=== PATIENT | male | born 1970 | race Caucasian/White ===

== ENCOUNTER 2021-01-07 12:51 | Observation (INO) | payer OTHER ==
[2021-01-07] MEDS ORDERED: SODIUM CHLORIDE 0.9% 1,000 ML IV STA ×2 (13:32→14:42)
[2021-01-07] MEDS ORDERED: METOCLOPRAMIDE 5 MG/ML 2 ML VIAL IVP STA (13:32)
[2021-01-07] MEDS ORDERED: MECLIZINE 12.5 MG TAB PO STA (13:33)
--- NOTE | 2021-01-07 13:35 | ED ---
General Adult HPI - General Source: patient, family Mode of arrival: ambulatory Limitations: no limitations <Brien Evans Vicky - Last Filed: 01/07/21 14:55> <Mary Taylor Maurice - Last Filed: 01/09/21 14:48> - General Chief complaint: Dizziness Stated complaint: possible ear infection Time Seen by Provider: 01/07/21 13:14 - History of Present Illness Initial comments: Dictation was produced using [employer] dictation software. please excuse any grammatical, word or spelling errors. Chief Complaint: 50-year-old male with no past medical history presents with vertigo History of Present Illness: Patient is a 42-year-old male he has no significant past medical history. He states that yesterday he began spritzing symptoms of vertigo. He states it feels like the room is spinning. States that rest his symptoms go away. It feels worse when he goes from lying down to sitting up. Patient has history of vertigo that he expense will kayaking once. Was never this bad. Patient denies any headache. No numbness or paresthesias to the arms or legs. The ROS documented in this emergency department record has been reviewed and confirmed by me. Those systems with pertinent positive or negative responses have been documented in the HPI. All other systems are other negative and/or noncontributory. PHYSICAL EXAM: General Impression: Alert and oriented x3, not in acute distress HEENT: Normocephalic atraumatic, extra-ocular movements intact, pupils equal and reactive to light bilaterally, mucous membranes moist. Cardiovascular: Heart regular rate and rhythm Chest: Able to complete full sentences, no retractions, no tachypnea Abdomen: abdomen soft, non-tender, non-distended, no organomegaly Musculoskeletal: Pulses present and equal in all extremities, no peripheral edema Motor: no focal deficits noted Neurological: CN II-XII grossly intact, no focal motor or sensory deficits noted, inducible nystagmus with gaze to the left, fast phase to the left, nondiaphoretic drinking Skin: Intact with no visualized rashes Psych: Normal affect and mood ED course:. 50-year-old male presents to the emergency department for benign positional vertigo. Vital Signs upon arrival are within acceptable limits. Laboratory evaluation obtained. CBC, coag panel, metabolic panel obtained. Labs unremarkable except for glucose of 236. This is addressed patient. He denies any history of diabetes. Says he had some cereal this morning. He is told that he could potentially be showing signs of diabetes. Patient reevaluated after administration of Antivert, IV fluids and Reglan. Trial ambulation was attempted. Patient still felt very lightheaded uneasy in his feet. States the symptoms began as he tried to walk. States that prior to attempting to ambulate his symptoms were essentially unnoticeable. Disposition options were discussed. States he doesn't have insurance and does not want to be admitted if he can be avoided. Patient agreeable for trial with diazepam. Pending urine. Patient is signed out to oncoming physician, Dr. Taylor. She is instructed to follow-up with patient and see if his symptoms resolve and to determine patient's final disposition EKG interpretation: Ventricular rate 90, normal sinus rhythm,. 122, QRS 82, QTc 437. No WI prolongation, no QTC prolongation, no ST or T-wave changes noted. Overall, this EKG is unremarkable (Brien Evans) - Related Data Home Medications Medication Instructions Recorded Confirmed Loratadine [Claritin] 10 mg PO DAILY 01/07/21 01/07/21 Allergies Allergy/AdvReac Type Severity Reaction Status Date / Time pseudoephedrine AdvReac JITTERY Verified 01/07/21 13:45 Review of Systems ROS Other: All systems not noted in ROS Statement are negative. <Brien Evans - Last Filed: 01/07/21 14:55> ROS Other: All systems not noted in ROS Statement are negative. <Mary Taylor - Last Filed: 01/09/21 14:48> ROS Statement: Those systems with pertinent positive or pertinent negative responses have been documented in the HPI. Past Medical History Past Medical History: No Reported History History of Any Multi-Drug Resistant Organisms: None Reported Past Surgical History: Tonsillectomy Past Psychological History: Depression Smoking Status: Never smoker Past Alcohol Use History: None Reported Past Drug Use History: None Reported <Brien Evans - Last Filed: 01/07/21 14:55> General Exam Limitations: no limitations <Brien Evans - Last Filed: 01/07/21 14:55> Course Vital Signs 01/07/21 01/07/21 01/07/21 13:00 14:57 15:41 Temperature 97.7 F Pulse Rate 94 99 98 Respiratory 18 18 18 Rate Blood Pressure 132/91 135/91 127/84 O2 Sat by Pulse 99 98 98 Oximetry 01/07/21 01/07/21 17:45 18:43 Temperature Pulse Rate 102 H 98 Respiratory 18 18 Rate Blood Pressure 132/87 111/81 O2 Sat by Pulse 98 98 Oximetry Medical Decision Making - Lab Data Result diagrams: 01/07/21 13:33 01/07/21 13:33 <Brien Evans - Last Filed: 01/07/21 14:55> - Lab Data Result diagrams: 01/08/21 05:44 01/08/21 05:44 <Mary Taylor - Last Filed: 01/09/21 14:48> - Medical Decision Making I reviewed the patient's history. Patient has been given multiple antiemetics for his vomiting as well as Antivert and Valium for his vertigo symptoms. He is reevaluated by myself. I did get the patient up and ambulate him. He does have a few episodes where he is dizzy and falling to the right side. He becomes vertiginous. He is placed back in his room and begins vomiting again. I then gave the patient Benadryl and Compazine. Due to his persistent symptoms I recommended a CT of his brain as well as CT angiography. This is performed, reviewed and negative. Due to patient's persistent symptoms I recommend admission with neurology consultation. Patient did agree to. Spoke with Dr. Ordonez who agreed to admit the patient. He is currently awaiting a bed on the floor (Mary Taylor) - Lab Data Lab Results 01/07/21 01/07/21 01/07/21 Range/Units 13:33 13:33 13:33 WBC 8.9 (3.8-10.6) k/uL RBC 5.37 (4.30-5.90) m/uL Hgb 16.1 (13.0-17.5) gm/dL Hct 47.6 (39.0-53.0) % MCV 88.7 (80.0-100.0) fL MCH 30.0 (25.0-35.0) pg MCHC 33.8 (31.0-37.0) g/dL RDW 12.0 (11.5-15.5) % Plt Count 259 (150-450) k/uL MPV 7.9 Neutrophils % 80 % Lymphocytes % 14 % Monocytes % 4 % Eosinophils % 1 % Basophils % 0 % Neutrophils # 7.1 (1.3-7.7) k/uL Lymphocytes # 1.2 (1.0-4.8) k/uL Monocytes # 0.4 (0-1.0) k/uL Eosinophils # 0.1 (0-0.7) k/uL Basophils # 0.0 (0-0.2) k/uL PT 10.5 (9.0-12.0) sec INR 1.0 (<1.2) APTT 22.4 (22.0-30.0) sec Sodium 139 (137-145) mmol/L Potassium 4.4 (3.5-5.1) mmol/L Chloride 102 (98-107) mmol/L Carbon Dioxide 24 (22-30) mmol/L Anion Gap 13 mmol/L BUN 15 (9-20) mg/dL Creatinine 0.95 (0.66-1.25) mg/dL Est GFR (CKD-EPI)AfAm >90 (>60 ml/min/1.73 sqM) Est GFR (CKD-EPI)NonAf >90 (>60 ml/min/1.73 sqM) Glucose 236 H (74-99) mg/dL POC Glucose (mg/dL) (75-99) mg/dL POC Glu Slubber Machine Operator ID [address] Glu mg/dL Hemoglobin A1c (4.0-6.0) % Calcium 10.2 (8.4-10.2) mg/dL Urine Color Urine Appearance (Clear) Urine pH (5.0-8.0) Ur Specific [place] (1.001-1.035) Urine Protein (Negative) Urine Glucose (UA) (Negative) Urine Ketones (Negative) Urine Blood (Negative) Urine Nitrite (Negative) Urine Bilirubin (Negative) Urine Urobilinogen (<2.0) mg/dL Ur Leukocyte Esterase (Negative) 01/07/21 01/07/21 01/07/21 Range/Units 14:58 16:42 17:14 WBC (3.8-10.6) k/uL RBC (4.30-5.90) m/uL Hgb (13.0-17.5) gm/dL Hct (39.0-53.0) % MCV (80.0-100.0) fL MCH (25.0-35.0) pg MCHC (31.0-37.0) g/dL RDW (11.5-15.5) % Plt Count (150-450) k/uL MPV Neutrophils % % Lymphocytes % % Monocytes % % Eosinophils % % Basophils % % Neutrophils # (1.3-7.7) k/uL Lymphocytes # (1.0-4.8) k/uL Monocytes # (0-1.0) k/uL Eosinophils # (0-0.7) k/uL Basophils # (0-0.2) k/uL PT (9.0-12.0) sec INR (<1.2) APTT (22.0-30.0) sec Sodium (137-145) mmol/L Potassium (3.5-5.1) mmol/L Chloride (98-107) mmol/L Carbon Dioxide (22-30) mmol/L Anion Gap mmol/L BUN (9-20) mg/dL Creatinine (0.66-1.25) mg/dL Est GFR (CKD-EPI)AfAm (>60 ml/min/1.73 sqM) Est GFR (CKD-EPI)NonAf (>60 ml/min/1.73 sqM) Glucose (74-99) mg/dL POC Glucose (mg/dL) 162 H (75-99) mg/dL POC Glu Slubber Machine Operator ID [address] Glu mg/dL 160 Hemoglobin A1c 7.2 H (4.0-6.0) % Calcium (8.4-10.2) mg/dL Urine Color Light Yellow Urine Appearance Clear (Clear) Urine pH 7.5 (5.0-8.0) Ur Specific [place] 1.036 H (1.001-1.035) Urine Protein Negative (Negative) Urine Glucose (UA) 4+ H (Negative) Urine Ketones 1+ H (Negative) Urine Blood Negative (Negative) Urine Nitrite Negative (Negative) Urine Bilirubin Negative (Negative) Urine Urobilinogen <2.0 (<2.0) mg/dL Ur Leukocyte Esterase Negative (Negative) Disposition Is patient prescribed a controlled substance at d/c from ED?: No <Brien Evans - Last Filed: 01/07/21 14:55> Decision to Admit Reason: Admit from EC Decision Date: 01/07/21 Decision Time: 17:49 <Mary Taylor - Last Filed: 01/09/21 14:48> Clinical Impression: Vertigo, Hyperglycemia Disposition: ADMITTED IP TO THIS HOSP Condition: Stable
[2021-01-07 13:48] LABS: Basophils % (A) 0 %; Eosinophils # (A) 0.1 k/uL (0-0.7); Eosinophils % (A) 1 %; HCT 47.6 % (39.0-53.0); HGB 16.1 gm/dL (13.0-17.5); Lymphocytes # (A) 1.2 k/uL (1.0-4.8); Lymphocytes % (A) 14 %; MCHC 33.8 g/dL (31.0-37.0); MCV 88.7 fL (80.0-100.0); Mean Platelet Volume 7.9; Monocytes # (A) 0.4 k/uL (0-1.0); Monocytes % (A) 4 %; Neutrophils # (A) 7.1 k/uL (1.3-7.7); Neutrophils % (A) 80 %; Platelet Count 259 k/uL (150-450); RBC 5.37 m/uL (4.30-5.90); WBC 8.9 k/uL (3.8-10.6)
[2021-01-07 14:18] LABS: African American GFR (CKD) >90 (>60 ml/min/1.73 sqM); Anion Gap 13 mmol/L; Blood Urea Nitrogen 15 mg/dL (9-20); Calcium 10.2 mg/dL (8.4-10.2); Carbon Dioxide 24 mmol/L (22-30); Chloride 102 mmol/L (98-107); Glucose 236 mg/dL (74-99); Non-African American GFR(CKD) >90 (>60 ml/min/1.73 sqM); Potassium 4.4 mmol/L (3.5-5.1); Sodium 139 mmol/L (137-145)
[2021-01-07 14:31] LABS: Partial Thromboplastin Time 22.4 sec (22.0-30.0); Prothrombin Time 10.5 sec (9.0-12.0)
[2021-01-07] MEDS ORDERED: DIAZEPAM 5 MG/ML 2 ML INJ IVP STA (14:43)
[2021-01-07] MEDS ORDERED: ONDANSETRON 4 MG/2 ML VIAL IVP STA (14:48)
[2021-01-07] MEDS ORDERED: DEXAMETHASONE SOD PHOSPHATE 10 MG/ML 1 ML VIAL IV STA (16:13)
[2021-01-07 16:43] LABS: Glucose,Whole Blood 162 mg/dL (75-99)
--- NOTE | 2021-01-07 17:08 | CT ---
EXAMINATION TYPE: CT brain wo con DATE OF EXAM: 01/07/2021 COMPARISON: None HISTORY: Vertigo. TECHNIQUE: CT scan of the head performed without contrast CT DLP: 1101.8 mGycm Automated exposure control for dose reduction was used. FINDINGS: No acute intracranial hemorrhage, midline shift or mass effect. [place]-white matter differentiation is preserved. CSF spaces and ventricular system are normal in appearance. No acute orbital, osseous or soft tissue abnormalities seen. Mucosal thickening is seen in the right maxillary sinus and ethmoid sinus. No mastoid air cell effusi on seen. IMPRESSION: 1. NO ACUTE INTRACRANIAL ABNORMALITY. 2. MUCOSAL SINUS DISEASE.
[2021-01-07] MEDS ORDERED: diphenhydrAMINE 50 MG/ML 1 ML VIAL IVP STA (17:11)
[2021-01-07] MEDS ORDERED: PROCHLORPERAZINE INJ 10 MG/2 ML VIAL IVP STA (17:12)
[2021-01-07 17:21] LABS: Appearance,Urine Clear (Clear); Bilirubin,Urine Negative (Negative); Blood,Urine Negative (Negative); Color,Urine Light Yellow; Glucose,Urine (UA) 4+ (Negative); Ketones,Urine 1+ (Negative); Leukocyte Esterase,Urine Negative (Negative); Nitrite,Urine Negative (Negative); PH, Urine 7.5 (5.0-8.0); Protein,Urine Negative (Negative); Specific Gravity,Urine 1.036 (1.001-1.035); Urobilinogen,Urine <2.0 mg/dL (<2.0)
--- NOTE | 2021-01-07 17:32 | CT ---
EXAMINATION TYPE: CT angio head neck DATE OF EXAM: 01/07/2021 HISTORY: Vertigo. COMPARISON: None CT DLP: 459.6 mGycm. Automated Exposure Control for Dose Reduction was Utilized. TECHNIQUE: CTA scan of the neck is performed with IV Contrast, patient injected with 65 mL of Isovue 370, axial images are obtained, coronal and sagittal reformatted images are reviewed. 3D reconstruct ed images are created on an independent workstation and reviewed. FINDINGS: Carotid/Vascular Structures: The aortic arch is normal in appearance. The common carotid arteries and vertebral arteries are patent. Internal carotid arteries and external carotid arteries are patent. N o occlusion or filling defects are seen in the [place]. Other: No acute intracranial hemorrhage, midline shift or mass effect. No enlarged cervical lymph nodes seen. The thyroid gland is normal in appearance. Lung apices are clear. Included airways are patent. The parapharyngeal fat is maintained. There are prominent lymph nodes in the parapharyngeal regions. Mild degenerative changes are seen in the cervical spine and upper thoracic spine. No significant soft tissue abnormality. IMPRESSION: Patent arterial structures from the aortic arch to the [place] with no significant stenosis or occlusion. NASCET criteria was used in interpretation of this exam?
[2021-01-07] MEDS ORDERED: ONDANSETRON 4 MG/2 ML VIAL IVP PRN (17:49)
[2021-01-07] MEDS ORDERED: NALOXONE 0.4 MG/ML 1 ML VIAL IV PRN (17:49)
[2021-01-07] MEDS ORDERED: PROMETHAZINE 25 MG TAB PO PRN (17:49)
[2021-01-07] MEDS: SODIUM CHLORIDE 0.9% 1,000 ML IV SCH (18:39)
[2021-01-08 10:09] LABS: Basophils # (A) 0.01 X 10*3/uL (0.00-0.10); Basophils % (A) 0.1 %; Eosinophils # (A) 0 X 10*3/uL (0.04-0.35); Eosinophils % (A) 0 %; HCT 41.3 % (39.6-50.0); HGB 13.5 g/dL (13.0-17.0); Lymphocytes # (A) 1.01 X 10*3/uL (0.90-5.00); Lymphocytes % (A) 9.1 %; MCHC 32.7 g/dL (32.0-37.0); MCV 88.6 fL (80.0-97.0); Mean Platelet Volume 10.7 fL (9.5-12.2); Monocytes # (A) 0.26 X 10*3/uL (0.20-1.00); Monocytes % (A) 2.3 %; Neutrophils # (A) 9.74 X 10*3/uL (1.80-7.70); Platelet Count 245 X 10*3/uL (140-440); RBC 4.66 X 10*6/uL (4.40-5.60); RDW 11.9 % (11.5-14.5); WBC 11.08 X 10*3/uL (4.50-10.00)
[2021-01-08 10:34] LABS: African American GFR (CKD) 102.7 (60.0-200.0); Anion Gap 12.3 mmol/L (4.00-12.00); BUN/Creat Ratio 13.9 Ratio (12.00-20.00); Blood Urea Nitrogen 13.9 mg/dL (9.0-27.0); Calcium 9.4 mg/dL (8.7-10.3); Carbon Dioxide 23.7 mmol/L (21.6-31.8); Non-African American GFR(CKD) 88.6 (60.0-200.0); Potassium 4.1 mmol/L (3.5-5.5)
--- NOTE | 2021-01-08 11:24 | P.CNNES ---
History of Present Illness Consult date: 01/08/21 Requesting physician: Mary Taylor Reason for Consult: Intractable vertigo History of Present Illness: Patient is a 50-year-old male with no significant past medical history, came to the hospital yesterday at 12:51 PM for evaluation of vertigo. Patient states that he woke up on Wednesday morning, 2 days ago and when he turned on the light, he lost balance, but did not fall. He felt his ears were in a sea shell, and w as feeling whooshing sounds. 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 He drove home and threw up. Since then he has been feeling wobbly when he walks. When he moves, feels sick to stomach. When he is laying down, he feels fine. When he gets up to go to the bathroom, feels sick. He never had any history of vertigo before. He denies any upper respiratory infection although does have some sinus congestion. Patient is noticing some sweating, chills off and on but no fever. No cough, shortness of breath or chest pain. Denies any recent or remote head or neck injury. Patient's vitals on arrival blood pressure 132/91, pulse of 94, temperature 97.7. CT head showed no acute intracranial process. Mucosal sinus disease. On my review, there is some opacification of the right ethmoid air sinuses. Mild mucosal thickening of the maxillary and sphenoid sinus. External auditory canals are clear. CTA of head and neck showed patent arterial structures from the aortic arch to the [place] of [place] with no significant stenosis or o cclusion. Blood test shows WBC 11.08, hemoglobin 13.5 and platelets 245. Chem- 7 is normal. Hemoglobin A1c 7.2, UA with 4+ glucose, 1+ ketones. Cronauer virus PCR negative. Patient only takes loratadine. Denies any history of diabetes. Review of Systems As above in detail. All other review of systems unremarkable. Past Medical History Past Medical History: No Reported History History of Any Multi-Drug Resistant Organisms: None Reported Past Surgical History: Tonsillectomy Past Psychological History: Depression Smoking Status: Never smoker Past Alcohol Use History: None Reported Past Drug Use History: None Reported Medications and Allergies Home Medications Medication Instructions Recorded Confirmed Type Loratadine [Claritin] 10 mg PO DAILY 01/07/21 01/07/21 History Allergies Allergy/AdvReac Type Severity Reaction Status Date / Time pseudoephedrine AdvReac JITTERY Verified 01/07/21 13:45 Physical Examination - Vital Signs Vital Signs: Vital Signs Temp Pulse Pulse Resp BP BP Pulse Ox 01/08/21 07:00 98 F 101 H 18 100/62 96 01/08/21 02:00 16 01/08/21 01:38 98.0 F 87 16 107/68 96 01/07/21 20:00 87 16 01/07/21 19:26 98.1 F 115 H 16 123/78 97 01/07/21 18:43 98 18 111/81 98 01/07/21 17:45 102 H 18 132/87 98 01/07/21 15:41 98 18 127/84 98 01/07/21 14:57 99 18 135/91 98 01/07/21 13:00 97.7 F 94 18 132/91 99 Intake and Output 01/07/21 01/08/21 01/08/21 22:59 06:59 14:59 Intake Total 240 Balance 240 Intake: Oral 240 Other: Voiding Method Toilet Toilet # Voids 2 2 0 Weight 71.668 kg Patient is a middle aged male, in no acute distress. Patient is alert awake oriented to time place and person. Speech and language functions are normal. Attention, concentration and fund of knowledge is silvestre quate. No aphasia or dysarthria. On cranial examination, pupils are round and reacting to light, visual lowery are full on confrontation, extraocular muscles are intact with mild lateral nystagmus noted on the left gaze. Face is symmetric, tongue protrudes to the midline. Palatal elevation and sensation normal, hearing and shoulder shrug normal, facial sensation normal. Shoulder shrug normal. On muscle strength testing, there is no pronator drift and the strength is normal in arms and legs distally and proximally. Deep tendon reflexes are 2+ in the upper limbs, 3+ at the knees, 2+ ankles and plantars downgoing bilaterally. No clonus. Sensory to touch is equal with no neglect. Cerebellar function showed no ataxia for [id number], or [id number] testing. No dysdiadochokinesia. Tone and bulk of muscles normal. Gait normal. On general examination, there is no carotid bruit or murmur, S1-S2 audible. Abdomen is soft nontender. Chest is clear. Peripheral pulses are present. No edema. Results - Laboratory Findings CBC and BMP: 01/08/21 05:44 01/08/21 05:44 Abnormal Lab Findings: Abnormal Labs 01/07/21 01/07/21 01/07/21 13:33 14:58 16:42 WBC Immature Gran # Neutrophils # Eosinophils # Anion Gap Glucose 236 H POC Glucose (mg/dL) 162 H Hemoglobin A1c 7.2 H Ur Specific [place] Urine Glucose (UA) Urine Ketones 01/07/21 01/08/21 01/08/21 17:14 05:44 05:44 WBC 11.08 H Immature Gran # 0.06 H Neutrophils # 9.74 H Eosinophils # 0 L Anion Gap 12.30 H Glucose 202 H POC Glucose (mg/dL) Hemoglobin A1c Ur Specific [place] 1.036 H Urine Glucose (UA) 4+ H Urine Ketones 1+ H Assessment and Plan Assessment: * Vertigo, probably due to viral labyrinthitis. Patient does have some sinus congestion, and computed tomography scan of the head also showed paranasal sinus congestion. * New onset diabetes. Hemoglobin A1c 7.2. Plan: * Consider Medrol Dosepak. * Claritin 10 mg daily. * Meclizine as needed for dizziness. * Treatment of diabetes as per IM. * We will check B12, folate and TSH. * Thank you for the consult. Addendum: The patient's nurse called me by perfect serve at 2:20 PM that patient is crying complaining of bad headache and also vomited. Patient was given Zofran. Patient at present complaining of headache involving the occipital region and the top of the head. He does drink about 4-5 cups of coffee per day, but now he has not been drinking coffee enough or not absorbing because of vomiting. He may be having caffeine withdrawal headache. Patient will be given Fioricet.
[2021-01-08] MEDS: MECLIZINE 12.5 MG TAB PO SCH ×3 (12:06→19:58)
[2021-01-08] MEDS ORDERED: LORazepam 2 MG/ML INJ IV STA (14:36)
[2021-01-08] MEDS ORDERED: BUTALB/APAP/CAFF 50-325-40MG TAB PO PRN (16:29)
[2021-01-08] MEDS: SODIUM CHLORIDE 0.9% 1,000 ML IV SCH ×2 (17:23→19:59)
--- NOTE | 2021-01-08 20:39 | P.HPIM ---
History of Present Illness H&P Date: 01/08/21 Chief Complaint: Of balance This is a pleasant 50-year-old patient who does not have a family doctor. Relevant good health except for chronic seasonal ALLERGIES, insomnia and some GERD. Yesterday patient started off after a shower as of the work seashells in the right ear. Been off of that showed Ikelizabeth became a bit wobbly. 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 Coming home he felt more off balance. Also nausea. No change in his speech. He noted that the symptoms are worse on head movement. Better with sitting still. Denies any fever and chills. Review of systems: GEN.: None EYES: None HEENT: As above NECK: None RESPIRATORY: None CARDIOVASCULAR: None GASTROINTESTINAL: Occasional GERD GENITOURINARY: None MUSCULOSKELETAL: None LYMPHATICS: None HEMATOLOGICAL: None PSYCHIATRY: None NEUROLOGICAL: As above Past medical history to include: Seasonal ALLERGIES Social history to include: Lives with his mother. 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 Does not smoke or drink alcohol. No recreational drugs. Family history: Reviewed, noncontributory to presentation Physical examination: VITAL SIGNS: 97.7, 94, 18, 132/91, 99% room air GENERAL: BMI 28, sitting up in bed, awake. EYES: Pupils equal. Conjunctiva candido, questionable horizontal nystagmus l. HEENT: External appearance of nose and ears normal, oral cavity grossly normal. NECK: JVD not raised; masses not palpable. HEART: First and second heart sounds are normal; no edema. LUNGS: Respiratory rate normal; clear to auscultation. ABDOMEN: Soft, nontender, liver spleen not palpable, no masses palpable. PSYCH: Alert and oriented x3; mood and affect normal. NEUROLOGICAL: Cranial nerves grossly intact; no facial asymmetry, power and sensation grossly intact. No past pointing. No dysdiokinesia. LYMPHATICS: No lymph nodes palpable in the axilla and neck INVESTIGATIONS, reviewed in the clinical context: WBC 8.9 hemoglobin 16.1 platelets 259 sodium 139 potassium 4.4 creatinine 0.95 HbA1c 7.2. Blood glucose 236 UA positive for glucose 4+ Coronavirus [PCR]: Not Detected EKG tracing personally reviewed by me-normal sinus rhythm. CT brain: Unremarkable Angiography CT: Negative Assessment and plan: -This patient presents an onset of everything spinning discomfort in the right ear. And which is very positional. Possible acute vestibulitis. BPPV to be ruled out 2. Neurology consulted. Champ maneuver instructions nurses instructed. Antivert. -Chronic ALLERGIES Claritin 10 mg daily -. Hyperglycemia. Possibly diabetes mellitus type 2. Recheck hour Accu-Cheks with sliding scale insulin. Champ maneuver. Antivert. Consult neurology. Accu-Cheks. Discussed with the patient. Past Medical History Past Medical History: No Reported History History of Any Multi-Drug Resistant Organisms: None Reported Past Surgical History: Tonsillectomy Past Psychological History: Depression Smoking Status: Never smoker Past Alcohol Use History: None Reported Past Drug Use History: None Reported Medications and Allergies Home Medications Medication Instructions Recorded Confirmed Type Loratadine [Claritin] 10 mg PO DAILY 01/07/21 01/07/21 History Allergies Allergy/AdvReac Type Severity Reaction Status Date / Time pseudoephedrine AdvReac JITTERY Verified 01/07/21 13:45 Physical Exam Vitals: Vital Signs Temp Pulse Pulse Resp BP BP Pulse Ox 01/08/21 07:00 98 F 101 H 18 100/62 96 01/08/21 02:00 16 01/08/21 01:38 98.0 F 87 16 107/68 96 01/07/21 20:00 87 16 01/07/21 19:26 98.1 F 115 H 16 123/78 97 01/07/21 18:43 98 18 111/81 98 01/07/21 17:45 102 H 18 132/87 98 01/07/21 15:41 98 18 127/84 98 01/07/21 14:57 99 18 135/91 98 01/07/21 13:00 97.7 F 94 18 132/91 99 Intake and Output 01/07/21 01/08/21 01/08/21 22:59 06:59 14:59 Intake Total 240 Balance 240 Intake: Oral 240 Other: Voiding Method Toilet Toilet # Voids 2 2 0 Weight 71.668 kg Results CBC & Chem 7: 01/08/21 05:44 01/08/21 05:44 Labs: Abnormal Lab Results - Last 24 Hours (Table) 01/07/21 01/07/21 01/07/21 Range/Units 13:33 14:58 16:42 WBC (4.50-10.00) X 10*3/uL Immature Gran # (0.00-0.04) X 10*3/uL Neutrophils # (1.80-7.70) X 10*3/uL Eosinophils # (0.04-0.35) X 10*3/uL Anion Gap (4.00-12.00) mmol/L Glucose 236 H (74-99) mg/dL POC Glucose (mg/dL) 162 H (75-99) mg/dL Hemoglobin A1c 7.2 H (4.0-6.0) % Ur Specific [place] (1.001-1.035) Urine Glucose (UA) (Negative) Urine Ketones (Negative) 01/07/21 01/08/21 01/08/21 Range/Units 17:14 05:44 05:44 WBC 11.08 H (4.50-10.00) X 10*3/uL Immature Gran # 0.06 H (0.00-0.04) X 10*3/uL Neutrophils # 9.74 H (1.80-7.70) X 10*3/uL Eosinophils # 0 L (0.04-0.35) X 10*3/uL Anion Gap 12.30 H (4.00-12.00) mmol/L Glucose 202 H (74-99) mg/dL POC Glucose (mg/dL) (75-99) mg/dL Hemoglobin A1c (4.0-6.0) % Ur Specific [place] 1.036 H (1.001-1.035) Urine Glucose (UA) 4+ H (Negative) Urine Ketones 1+ H (Negative) Thrombosis Risk Factor Assmnt - Choose All That Apply Any of the Below Risk Factors Present?: Yes Each Factor Represents 1 point: Age 41-60 years, Obesity (BMI >25) Other Risk Factors: No Other congenital or acquired thrombophilia - If yes, enter type in comment: No Thrombosis Risk Factor Assessment Total Risk Factor Score: 2 Thrombosis Risk Factor Assessment Level: Low Risk
[2021-01-08 21:35] LABS: Glucose,Whole Blood 235 mg/dL (75-99)
[2021-01-08] MEDS: INSULIN ASPART (NovoLOG) 100 UNIT/ML VIAL SQ SCH (21:39)
[2021-01-09 02:22] VITALS: RESP 18
[2021-01-09 02:38] VITALS: TEMP 98.1
[2021-01-09] MEDS ORDERED: metFORMIN 500 MG TAB PO SCH (07:30)
[2021-01-09 08:11] LABS: Glucose,Whole Blood 290 mg/dL (75-99)
[2021-01-09] MEDS: INSULIN ASPART (NovoLOG) 100 UNIT/ML VIAL SQ SCH ×2 (08:46→13:30)
[2021-01-09] MEDS: MECLIZINE 12.5 MG TAB PO SCH (08:46)
[2021-01-09 10:33] VITALS: BMI 28.0
--- NOTE | 2021-01-09 11:22 | P.PN ---
Subjective Progress Note Date: 01/09/21 Patient is doing much better. He states he is walking well. No nausea vomiting. Denies headache. Objective - Vital Signs Vital signs: Vital Signs Temp 98.1 F 01/09/21 07:00 Pulse 90 01/09/21 07:00 Resp 18 01/09/21 07:00 BP 108/71 01/09/21 07:00 Pulse Ox 93 L 01/09/21 07:00 Intake & Output 01/08/21 01/09/21 01/09/21 18:59 06:59 18:59 Intake Total 600 180 Balance 600 180 Weight 71.668 kg Intake: Oral 600 180 Other: Voiding Method Toilet Toilet # Voids 1 2 - Exam Mental status, speech and language functions are normal. Cranial nerves II through XII are normal. On muscle strength testing there is no drift and the strength is normal. No ataxia. Gait normal. Sensations equal with no neglect. - Labs CBC & Chem 7: 01/08/21 05:44 01/08/21 05:44 Labs: Abnormal Lab Results - Last 24 Hours (Table) 01/08/21 01/09/21 Range/Units 21:33 08:10 POC Glucose (mg/dL) 235 H 290 H (75-99) mg/dL Assessment and Plan Assessment: * Vertigo, probably due to viral labyrinthitis. Patient does have some sinus congestion, and runny nose. His computed tomography scan of the head also showed paranasal sinus congestion. * New onset diabetes. Hemoglobin A1c 7.2. Plan: * Consider Medrol Dosepak. * Claritin 10 mg daily. * Meclizine as needed for dizziness. * Treatment of diabetes as per IM. * B12 843, folate 13 and TSH 0.801 all normal. * Suggest starting aspirin 81 mg daily because of new onset diabetes. * Neurologically clear.
[2021-01-09 11:43] LABS: Glucose,Whole Blood 169 mg/dL (75-99)
[2021-01-09 14:20] VITALS: BP 127/86; PULSE 93
[2021-01-09 15:17] LABS: LDL Cholesterol,Calculated 152.8 mg/dL (0.0-131.0); VLDL Calculation 35.2 mg/dL (5.00-40.00)
--- NOTE | 2021-01-10 19:18 | P.DS ---
Providers Date of admission: 01/07/21 17:49 Expected date of discharge: 01/09/21 Attending physician: Skip Ordonez Consults: 01/07/21 17:50 Consult Physician Urgent Consulting Provider: Malu Giordano Consult Reason/Comments: intractable vertigo Do you want consulting provider notified?: Yes Primary care physician: Stated None Hospital Course: Chief Complaint: Of balance This is a pleasant 50-year-old patient who does not have a family doctor. Relevant good health except for chronic seasonal ALLERGIES, insomnia and some GERD. Yesterday patient started off after a shower as of the work seashells in the right ear. Been off of that showed [place] became a bit wobbly. 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 Coming home he felt more off balance. Also nausea. No change in his speech. He noted that the symptoms are worse on head movement. Better with sitting still. Denies any fever and chills. Patient felt of acute vestibulitis. Likely viral. Patient also to have earwax cleaning of the right side. Responded well to Antivert. Today: Doing well. Symptoms much improved. Care was discussed with the patient and mother. Cleared by neurology. New-onset diabetic. Start the patient on metformin. Lipitor. Has a glucometer. Questions were discussed. Also discussed about starting lisinopril as an outpatient Discussion and discharge planning more than 35 minutes Consultation: Dr. Cristobal from neurology Past medical history to include: Seasonal ALLERGIES Social history to include: Lives with his mother. 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 Does not smoke or drink alcohol. No recreational drugs. Family history: Reviewed, noncontributory to presentation Physical examination: VITAL SIGNS: 98.1, 93, 18, 127/86, 100% room air GENERAL: BMI 28, sitting up in bed, awake. EYES: Pupils equal. Conjunctiva candido, HEENT: External appearance of nose and ears normal, oral cavity grossly normal. NECK: JVD not raised; masses not palpable. HEART: First and second heart sounds are normal; no edema. LUNGS: Respiratory rate normal; clear to auscultation. ABDOMEN: Soft, nontender, liver spleen not palpable, no masses palpable. PSYCH: Alert and oriented x3; mood and affect normal. INVESTIGATIONS, reviewed in the clinical context: WBC 8.9 hemoglobin 16.1 platelets 259 sodium 139 potassium 4.4 creatinine 0.95 HbA1c 7.2. Blood glucose 236 UA positive for glucose 4+ Coronavirus [PCR]: Not Detected EKG tracing personally reviewed by me-normal sinus rhythm. CT brain: Unremarkable Angiography CT: Negative Assessment and plan: - Possible acute vestibulitis possibly vital. Antivert -New-onset diabetes were discussed type II Accu-Chek, glaucoma better. Metformin. Lipitor. -Chronic ALLERGIES Claritin 10 mg daily Disposition: Home Plan - Discharge Summary Discharge Rx Participant: No New Discharge Prescriptions: New Meclizine [Antivert] 12.5 mg PO TID #30 tab Aspirin 81 mg PO DAILY #30 tab Atorvastatin Calcium [Lipitor] 20 mg PO HS #30 tab metFORMIN HCL [Glucophage] 500 mg PO AC-BID #60 tab Continue Loratadine [Claritin] 10 mg PO DAILY Discharge Medication List Loratadine [Claritin] 10 mg PO DAILY 01/07/21 [History] Aspirin 81 mg PO DAILY #30 tab 01/09/21 [Rx] Atorvastatin Calcium [Lipitor] 20 mg PO HS #30 tab 01/09/21 [Rx] Meclizine [Antivert] 12.5 mg PO TID #30 tab 01/09/21 [Rx] metFORMIN HCL [Glucophage] 500 mg PO AC-BID #60 tab 01/09/21 [Rx] Follow up Appointment(s)/Referral(s): Shreyas Madden DO [Doctor of Osteopathic Medicine] - 1 Week (PLEASE CALL OFFICE TO ESTABLISH WITH DR. MADDEN ) Patient Instructions/Handouts: Vertigo (ED), Type 2 Diabetes in Adults: New Diagnosis (DC), Basic Carbohydrate Counting (DC), Diabetic Hyperglycemia (ED) Activity/Diet/Wound Care/Special Instructions: Monitor blood sugars before meals and at bedtime, keep record and take with you to primary care physician appointment. Discharge Disposition: HOME SELF-CARE
== END 2021-01-09 16:14 | disposition home or self-care (01) ==
LOC: EC 12:51 → 6NMEDSUR 17:49
PROVIDERS: ADMIT Hospitalist; ATTEND Hospitalist
DX: E11.65 Type 2 diabetes mellitus with hyperglycemia (principal); R42 Dizziness and giddiness; R51.9 Headache, unspecified; Z20.822 Contact with and (suspected) exposure to COVID-19; K21.9 Gastro-esophageal reflux disease without esophagitis; G47.00 Insomnia, unspecified; J30.2 Other seasonal allergic rhinitis; F32.9 Major depressive disorder, single episode, unspecified; Z88.8 Allergy status to other drugs, medicaments and biological substances; E66.9 Obesity, unspecified; Z68.28 Body mass index [BMI] 28.0-28.9, adult; Z79.899 Other long term (current) drug therapy
CPT/HCPCS: 99285; 96376; 96361 ×3; 96375 ×2; 96374; 36415; 93005; 80061; 80048 ×2; 84443; 82607; 82746; 85025 ×2; 85610; 85730; 81003; 83036; 87635; 70496; 70450; 70498; G0378 ×3; J2060; J1200; J0780; J1100; J2765; J3360; J2405 ×2; Q9967